=== PATIENT | female | born 1985 | race African-American/Black ===

== ENCOUNTER 2017-03-16 18:23 | Emergency (ER) | payer OTHER ==
[~2017-03-16] VITALS: Ht 160 cm; Wt 78.0 kg
[2017-03-16 18:41] VITALS: BP 138/84
--- NOTE | 2017-03-16 18:58 | PHYS DOC ---
Past Medical History Past Medical History: No Pertinent History Past Surgical History: No Surgical History Alcohol Use: None Drug Use: None Adult General Chief Complaint Chief Complaint: RING REMOVAL [facility] HPI Patient is a 31 year old female resents to the emergency department stating that she took her wedding ring off of her left ring finger placed on her middle finger so she would not lose it. She states the finger became swollen and she is unable to get the ring off. She states that she did try to put some throat and her to be able to pull the ring off which causes the finger to become red and swollen. Cap refill brisk less than 2 seconds. Review of Systems Review of Systems Constitutional: Denies fever or chills [] Eyes: Denies change in visual acuity, redness, or eye pain [] HENT: Denies nasal congestion or sore throat [] Respiratory: Denies cough or shortness of breath [] Cardiovascular: No additional information not addressed in HPI [] GI: Denies abdominal pain, nausea, vomiting, bloody stools or diarrhea [] : Denies dysuria or hematuria [] Musculoskeletal: Denies back pain or joint pain [] Integument: Denies rash or skin lesions [] Neurologic: Denies headache, focal weakness or sensory changes [] Endocrine: Denies polyuria or polydipsia [] Allergies Allergies Allergies Coded Allergies Type Severity Reaction Last Updated Verified Penicillins Allergy Unknown 03/16/17 Yes Physical Exam Physical Exam Constitutional: Well developed, well nourished, no acute distress, non-toxic appearance. [] HENT: Normocephalic, atraumatic, bilateral external ears normal, oropharynx moist, no oral exudates, nose normal. [] Eyes: PERRLA, EOMI, conjunctiva normal, no discharge. [] Neck: Normal range of motion, no tenderness, supple, no stridor. [] Cardiovascular:Heart rate regular rhythm Lungs & Thorax: no respiratory distress noted Skin: Warm, dry, no erythema, no rash. [] Back: No tenderness Extremities: No tenderness, no cyanosis, no clubbing, ROM intact, no edema. [] Neurologic: Alert and oriented X 3, normal motor function, normal sensory function, no focal deficits noted. [] Psychologic: Affect normal, judgement normal, mood normal. [] Current Patient Data Vital Signs Vital Signs Date Time Temp Pulse Resp B/P (MAP) Pulse Ox O2 Delivery O2 Flow Rate FiO2 03/16/17 18:41 98.6 85 20 97 Room Air 98.6 EKG EKG [] Radiology/Procedures Radiology/Procedures [] Course & Med Decision Making Course & Med Decision Making Pertinent Labs and Imaging studies reviewed. (See chart for details) Into to use umbilical tape to remove the ring with patient unable to tolerate due to pain and discomfort. Patient has chosen to have the ring cut off. He was removed by EMT. Patient did obtain a scratch on the finger there was superficial. Patient discharged home in stable condition signs symptoms to return back to emergency department was provided. Dragon Disclaimer Dragon Disclaimer This electronic medical record was generated, in whole or in part, using a voice recognition dictation system. Departure Departure Impression: Primary Impression: Finger pain, left Disposition: 01 HOME, SELF-CARE Condition: STABLE Patient Instructions: Jammed Finger Additional Instructions: Ice packs to the finger for pain and discomfort Tylenol or Ibuprofen for pain and discomfort Elevation as needed Return to emergency department as needed for signs and symptoms that become worse. [facility] March 16, 2017 18:58
== END 2017-03-16 19:30 | disposition home or self-care (01) ==
LOC: ER 18:23
DX: M79.645 Pain in left finger(s) (principal); M79.89 Other specified soft tissue disorders; Z88.0 Allergy status to penicillin
CPT/HCPCS: 99284